=== PATIENT | male | born 1965 | race Caucasian/White ===

== ENCOUNTER 2018-02-18 14:51 | Emergency (ER) | payer OTHER ==
[2018-02-18 15:08] VITALS: BP 121/75
[2018-02-18] MEDS: Ketorolac 60 MG/2 ML SDV IM ONE (15:43)
--- NOTE | 2018-02-18 16:12 | EDM.PDOC ---
ED HPI GENERAL MEDICAL PROBLEM - General Chief Complaint: Back Pain or Injury Stated Complaint: BACK PAIN Time Seen by Provider: 02/18/18 14:55 Source of Information: Reports: Patient History Limitations: Reports: No Limitations - History of Present Illness INITIAL COMMENTS - FREE TEXT/NARRATIVE: Pt. presents to ER with complaints of low back pain. States that he tripped over his own feet and fell backwards, injuring his low back. He states that he did not strike his head, and states that the injury is isolated to his lumbar spine. No saddle anesthesia or incontinence. Onset: Today Location: Reports: Back Quality: Reports: Ache Severity: Moderate Improves with: Reports: Rest Worsens with: Reports: Medication Context: Reports: Activity Lower Back Pain Score (Numeric/FACES): 6 - Related Data Allergies Allergy/AdvReac Type Severity Reaction Status Date / Time lidocaine Allergy Cardiac Verified 09/05/16 07:40 Arrest Home Meds: Home Meds . [No Known Home Meds] 04/28/14 [History] Past Medical History - Past Health History Medical/Surgical History: Denies Medical/Surgical History - Past Surgical History Musculoskeletal Surgical History: Reports: Carpal Tunnel Social & Family History - Tobacco Use Smoking Status *Q: Current Every Day Smoker Years of Tobacco use: 30 Packs/Tins Daily: 0.5 ED ROS GENERAL - Review of Systems Review Of Systems: See Below Constitutional: Reports: No Symptoms HEENT: Reports: No Symptoms Respiratory: Reports: No Symptoms Cardiovascular: Reports: No Symptoms GI/Abdominal: Reports: No Symptoms : Reports: No Symptoms Musculoskeletal: Reports: Back Pain Skin: Reports: No Symptoms Neurological: Reports: No Symptoms Psychiatric: Reports: No Symptoms Hematologic/Lymphatic: Reports: No Symptoms Immunologic: Reports: No Symptoms ED EXAM, GENERAL - Physical Exam Exam: See Below Exam Limited By: No Limitations General Appearance: Alert, WD/WN, No Apparent Distress Head: Atraumatic, Normocephalic Neck: Normal Inspection, Supple, Non-Tender, Full Range of Motion Respiratory/Chest: No Respiratory Distress, Lungs Clear, Normal Breath Sounds, No Accessory Muscle Use, Chest Non-Tender Cardiovascular: Normal Peripheral Pulses, Regular Rate, Rhythm, No Edema, No Gallop, No JVD, No Murmur, No Rub Back Exam: Normal Inspection, Decreased Range of Motion, Paraspinal Tenderness Extremities: Normal Inspection, Normal Range of Motion, Non-Tender, Normal Capillary Refill, No Pedal Edema Neurological: Alert, Oriented, CN II-XII Intact, Normal Cognition, Normal Gait, Normal Reflexes, No Motor/Sensory Deficits Skin Exam: Warm, Dry, Intact, Normal Color, No Rash Course - Vital Signs Last Recorded V/S: Last Vital Signs Temp 36.8 C 02/18/18 14:55 Pulse 58 L 02/18/18 14:55 Resp 18 02/18/18 14:55 BP 121/75 02/18/18 14:55 Pulse Ox 98 02/18/18 14:55 - Orders/Labs/Meds Orders: Active Orders 24 hr Category Date Time Status Lumbar Spine 2 or 3V [CR] Stat Exams 02/18/18 15:15 Taken Meds: Medications Discontinued Medications Generic Name Dose Route Start Last Admin Trade Name Bia PRN Reason Stop Dose Admin Ketorolac Tromethamine 60 mg 02/18/18 15:16 02/18/18 15:43 Toradol IM 02/18/18 15:17 60 mg ONETIME ONE Administration - Radiology Interpretation Free Text/Narrative:: plain films of lumbar spine are negative. Departure - Departure Time of Disposition: 16:00 Disposition: Home, Self-Care 01 Clinical Impression: Low back pain - Discharge Information Instructions: Back Pain, Adult Referrals: Krysten Clay PA-C [Primary Care Provider] - Forms: ED Department Discharge Additional Instructions: Home to rest. Ice low back for 10-15 min every 1-2 hours. Ibuprofen 600mg every 6 hours. Flexeril 10mg 3 times daily. - My Orders Last 24 Hours: My Active Orders 02/18/18 15:15 Lumbar Spine 2 or 3V [CR] Stat - Assessment/Plan Last 24 Hours: My Active Orders 02/18/18 15:15 Lumbar Spine 2 or 3V [CR] Stat
== END 2018-02-18 16:03 | disposition home or self-care (01) ==
LOC: VM.ED 14:51
DX: M54.5 Low back pain (principal); F17.210 Nicotine dependence, cigarettes, uncomplicated; Z88.8 Allergy status to other drugs, medicaments and biological substances
CPT/HCPCS: 72100; 96372; 99283; J1885

== ENCOUNTER 2019-05-10 08:16 | Emergency (ER) | payer BC, OTHER ==
--- NOTE | 2019-05-10 08:34 | EDM.PDOC ---
ED HPI GENERAL MEDICAL PROBLEM - General Stated Complaint: pain right side Time Seen by Provider: 05/10/19 08:33 Source of Information: Reports: Patient History Limitations: Reports: No Limitations - History of Present Illness INITIAL COMMENTS - FREE TEXT/NARRATIVE: Patient's having pain about 30 minutes ago. He states that it has been going on and off past couple days. He has not had stones before. His regular doctor is Dr. Lomeli. This pain on and is on the left side. It is about a 10/10 and it is radiating around his left flank to the groin. Patient is diaphoretic. Patient also is diabetic. He does have a history of gastroenteritis. No colonoscopy. I will do a CAT scan with and without contrast to look for stones or diverticulitis. He did receive Zofran and Dilaudid. He did have relief. I did message his primary in regards to the renal cyst. 2 small calculi were noted distally. He was given a liter of fluid. Flomax. Pain management. Will strain for stones. Onset: Today Duration: Getting Worse Location: Reports: Abdomen, Radiates to (Left groin.) Quality: Reports: Ache, Sharp, Stabbing, Throbbing Severity: Severe Improves with: Reports: None Worsens with: Reports: None Associated Symptoms: Reports: No Other Symptoms Left Flank Pain Score (Numeric/FACES): 10 - Related Data Allergies Allergy/AdvReac Type Severity Reaction Status Date / Time lidocaine Allergy Severe Cardiac Verified 05/10/19 08:39 Arrest Home Meds: Home Meds Hydrocodone/Acetaminophen [Hydrocodon-Acetaminophen 5-325] 1 - 2 each PO Q4H PRN #20 tablet 05/10/19 [Rx] Lisinopril 5 mg PO DAILY 05/10/19 [History] Tamsulosin [Tamsulosin 24 Hr] 0.4 mg PO DAILY #10 cap.er 05/10/19 [Rx] atorvaSTATin Calcium [Atorvastatin Calcium] 10 mg PO DAILY 05/10/19 [History] metFORMIN HCl [Metformin HCl] 500 mg PO DAILY 05/10/19 [History] Past Medical History - Past Health History Medical/Surgical History: Denies Medical/Surgical History - Past Surgical History Musculoskeletal Surgical History: Reports: Carpal Tunnel Social & Family History - Tobacco Use Smoking Status *Q: Current Every Day Smoker ED ROS GENERAL - Review of Systems Review Of Systems: ROS reveals no pertinent complaints other than HPI. ED EXAM, GI/ABD - Physical Exam Exam: See Below Exam Limited By: No Limitations General Appearance: Moderate Distress, Severe Distress Respiratory/Chest: No Respiratory Distress Cardiovascular: Normal Peripheral Pulses, Regular Rate, Rhythm GI/Abdominal Exam: Other (CVA tenderness is positive on the left. Radiates to the left groin. Abdominal pain. Left-sided. Left lower quadrant.) Back Exam: CVA Tenderness (L) Neurological: Alert, Oriented Psychiatric: Anxious Skin Exam: Diaphoretic Course - Vital Signs Last Recorded V/S: Last Vital Signs Temp 35.4 C 05/10/19 08:20 Pulse 73 05/10/19 08:20 Resp 16 05/10/19 08:20 BP 114/81 05/10/19 08:20 Pulse Ox 95 05/10/19 08:20 - Orders/Labs/Meds Labs: Laboratory Tests 05/10/19 05/10/19 05/10/19 Range/Units 08:35 08:35 09:30 WBC 6.6 (4.0-10.0) x10^3/uL RBC 5.34 (4.5-6.0) x10^6/uL Hgb 15.4 D (14.0-18.0) g/dL Hct 45.9 (40.0-52.0) % MCV 86.0 (78.0-93.0) fL MCH 28.8 (26.0-32.0) pg MCHC 33.6 (32.0-36.0) g/dL RDW Coeff of Jorge 13.4 (10.0-15.0) % Plt Count 211 (130-400) x10^3/uL Neut % (Auto) 60.2 (50.0-80.0) % Lymph % (Auto) 30.1 (25.0-50.0) % [place] % (Auto) 7.6 (2.0-11.0) % Eos % (Auto) 1.8 (0.0-4.0) % Baso % (Auto) 0.3 (0.2-1.2) % Sodium 142 (69-191) mmol/L Potassium 4.3 (1.5-9.9) mmol/L Chloride 105 (54-184) mmol/L Carbon Dioxide 25 (21-32) mmol/L Anion Gap 16.3 (10-20) mmol/L BUN 22 H (7-18) mg/dL Creatinine 0.8 (0.70-1.30) mg/dL Est Cr Clr Drug Dosing TNP Estimated GFR (MDRD) > 60 Glucose 143 H (74-106) mg/dL Calcium 9.3 (8.5-10.1) mg/dL Corrected Calcium 9.38 (8.5-10.1) mg/dL Total Bilirubin 1.0 (0.2-1.0) mg/dL AST 26 (15-37) U/L ALT 25 (16-63) U/L Alkaline Phosphatase 69 (46-116) U/L C-Reactive Protein 0.4 (<=0.9) mg/dL Total Protein 8.0 (6.4-8.2) g/dL Albumin 3.9 (3.4-5.0) g/dL Globulin 4.1 Albumin/Globulin Ratio 0.95 Urine Color Yellow (YELLOW) Urine Appearance Clear (CLEAR) Urine pH 5.0 (5.0-8.0) Ur Specific [place] 1.015 Urine Protein Negative (NEGATIVE) mg/dL Urine Glucose (UA) Negative (NEGATIVE) mg/dL Urine Ketones Negative (NEGATIVE) mg/dL Urine Occult Blood Moderate H (NEGATIVE) Urine Nitrite Negative (NEGATIVE) Urine Bilirubin Negative (NEGATIVE) Urine Urobilinogen 0.2 (0.2) EU/dL Ur Leukocyte Esterase Negative (NEGATIVE) Meds: Medications Discontinued Medications Generic Name Dose Route Start Last Admin Trade Name Freq PRN Reason Stop Dose Admin Hydromorphone HCl 1 mg 05/10/19 08:39 05/10/19 08:47 Dilaudid IVPUSH 05/10/19 08:40 1 mg ONETIME ONE Administration Sodium Chloride 1,000 mls @ 999 mls/hr 05/10/19 09:46 05/10/19 10:19 Normal Saline IV 05/10/19 10:46 999 mls/hr .BOLUS ONE Administration Iopamidol 100 ml 05/10/19 09:29 05/10/19 09:30 Isovue-300 (61%) IVPUSH 05/10/19 09:30 100 ml ONETIME ONE Administration Ondansetron HCl 4 mg 05/10/19 08:39 05/10/19 08:49 Zofran IVPUSH 05/10/19 08:40 4 mg ONETIME ONE Administration Departure - Departure Time of Disposition: 10:09 Disposition: Home, Self-Care 01 Condition: Fair Clinical Impression: Ureteric colic - Discharge Information *PRESCRIPTION DRUG MONITORING PROGRAM REVIEWED*: No *COPY OF PRESCRIPTION DRUG MONITORING REPORT IN PATIENT SISSY: No Prescriptions: Hydrocodone/Acetaminophen [Hydrocodon-Acetaminophen 5-325] 1 - 2 each PO Q4H PRN #20 tablet PRN Reason: Pain Tamsulosin [Tamsulosin 24 Hr] 0.4 mg PO DAILY #10 cap.er Instructions: Renal Colic, [id number], Kidney Stones, [id number] Referrals: Reddy Bird PA-C [Primary Care Provider] - Forms: ED Department Discharge, ED Return to Work/School Form Additional Instructions: CT scan shows a stone in the bladder and one nearly passing. Continue to drink plenty of water. Strain your urine and recover the stone if possible for a stone analysis. Flomax may help. Use pain medications if needed. It does appear you have a large cyst on your left kidney that does not appear to be affecting your kidney function per se. I will message your doctor and see if he would like to see you regarding this or if he prefer you to see a urologist. I don't believe they will have any further recommendations. Observation will only be needed.
[2019-05-10] MEDS ORDERED: Ondansetron 4 MG/2 ML SDV IVPUSH ONE (08:39)
[2019-05-10] MEDS ORDERED: HYDROmorphone 1 MG/ML Syringe IVPUSH ONE (08:39)
[2019-05-10 09:04] VITALS: BP 114/81; PULSE 73
[2019-05-10 09:04] LABS: CHLORIDE,CL 105 mmol/L (54-184); SODIUM,NA 142 mmol/L (69-191)
[2019-05-10 09:06] LABS: ANION GAP 16.3 mmol/L (10-20)
[2019-05-10] MEDS ORDERED: Iopamidol 612 MG/ML 100 ML Bottle IVPUSH ONE (09:29)
[2019-05-10] MEDS ORDERED: Sodium Chloride 0.9% 1,000 ML IV ONE (09:46)
--- NOTE | 2019-05-10 10:03 | CT ---
[id number] CT/CT Abdomen Pelvis WWO IV EXAM: CT Abdomen Pelvis WWO IV INDICATION: Pain with concern for diverticulitis or left-sided renal stone. COMPARISON: None. FINDINGS: The distal left ureter there is a 2 mm calculus at the ureterovesicular junction and a 3 x 2 mm calculus in a couple of centimeters proximal to this. This results in [id number] left hydronephrosis. 11.3 cm cyst arising from the lower pole of the left kidney. 10 mm hypodense exophytic lesion interpolar region left kidney without appreciable enhancement likely a complicated cyst. No right-sided calculus or collecting system dilation. Cholelithiasis without CT evidence of acute cholecystitis. Fatty atrophy of the abdominal wall musculature. There are few scattered colonic diverticula without evidence of diverticulitis. The liver, pancreas, spleen, adrenal glands, and small bowel are normal in appearance. No free air or free fluid. Degenerative disc disease L4-L5 and L5-S1. The osseous structures are otherwise unremarkable. IMPRESSION: 1. In the distal left ureter there are 2 and 3 mm calculi resulting in [id number] left hydroureteronephrosis. Matheus Ortega MD 05/10/19 1001 Thank you for allowing us to participate in the care of your patient.
== END 2019-05-10 11:00 | disposition home or self-care (01) ==
LOC: VM.ED 08:16
DX: N23 Unspecified renal colic (principal); E11.9 Type 2 diabetes mellitus without complications; F17.200 Nicotine dependence, unspecified, uncomplicated; Z88.8 Allergy status to other drugs, medicaments and biological substances; Z79.899 Other long term (current) drug therapy; Z79.84 Long term (current) use of oral hypoglycemic drugs
CPT/HCPCS: 74178; 80053; 81003; 85025; 86140; 96361; 96374; 96375; 99284; J1170; J2405; J7030; Q9967

== ENCOUNTER 2020-11-27 11:23 | Emergency (ER) | payer BC ==
[2020-11-27] MEDS ORDERED: Sodium Chloride 0.9% 10 ML Syringe FLUSH PRN (11:32)
--- NOTE | 2020-11-27 11:52 | EDM.PDOC ---
ED HPI GENERAL MEDICAL PROBLEM - General Stated Complaint: SOB Time Seen by Provider: 11/27/20 11:23 Source of Information: Reports: Patient History Limitations: Reports: No Limitations - History of Present Illness INITIAL COMMENTS - FREE TEXT/NARRATIVE: Pt. presents to ER via private vehicle with complaints of 12 day history of respirophasic chest pain, shortness of breath, GUTIERREZ, and cough, occasionally productive of yellowish sputum. Pt. states that the symptoms started after his last covid vaccination. He said the symptoms did improve somewhat, but got worse again this past Friday. He has been using mucinex, with minimal improvement of symptoms. He has been afebrile. Last time he was tested for covid 19 was June. Pt. denies any diaphoresis. No nausea, vomiting, or diarrhea. Denies any rashes. Pt. denies any jaw, arm, neck or back pain. Pt. states that he stopped smoking in Sep. He has a history of hypertension, IFG, and hyperlipidemia. He denies any recent chest trauma. - Related Data Allergies Allergy/AdvReac Type Severity Reaction Status Date / Time lidocaine Allergy Severe Cardiac Verified 05/10/19 08:39 Arrest strawberry Allergy Cannot Verified 11/27/20 11:57 Remember Home Meds: Home Meds atorvaSTATin Calcium [Atorvastatin Calcium] 10 mg PO DAILY 05/10/19 [History] lisinopriL [Lisinopril] 5 mg PO DAILY 05/10/19 [History] metFORMIN HCl [Metformin HCl] 500 mg PO DAILY 05/10/19 [History] Aspirin 81 mg PO DAILY 11/27/20 [History] Multivitamin 1 tab PO DAILY 11/27/20 [History] Past Medical History - Past Health History Medical/Surgical History: Denies Medical/Surgical History Cardiovascular History: Reports: High Cholesterol, Hypertension Endocrine/Metabolic History: Reports: Diabetes, Type II - Past Surgical History Musculoskeletal Surgical History: Reports: Carpal Tunnel ED ROS GENERAL - Review of Systems Review Of Systems: See Below Constitutional: Reports: No Symptoms. Denies: Fever, Chills, Malaise, Weakness, Fatigue, Night Sweats, Diaphoresis HEENT: Reports: No Symptoms Respiratory: Reports: Shortness of Breath, Cough Cardiovascular: Reports: Chest Pain, Dyspnea on Exertion. Denies: Edema, Lightheadedness, Palpitations, PND, Syncope Endocrine: Reports: No Symptoms GI/Abdominal: Reports: No Symptoms : Reports: No Symptoms Musculoskeletal: Reports: No Symptoms Skin: Reports: No Symptoms Neurological: Reports: No Symptoms Psychiatric: Reports: No Symptoms Hematologic/Lymphatic: Reports: No Symptoms Immunologic: Reports: No Symptoms ED EXAM, GENERAL - Physical Exam Exam: See Below Exam Limited By: No Limitations General Appearance: Alert, WD/WN, No Apparent Distress Eye Exam: Bilateral Eye: EOMI Throat/Mouth: Normal Lips, Normal Voice, No Airway Compromise Head: Atraumatic, Normocephalic Neck: Normal Inspection, Supple, Non-Tender, Full Range of Motion Respiratory/Chest: No Respiratory Distress, No Accessory Muscle Use, Decreased Breath Sounds Cardiovascular: Regular Rate, Rhythm, No Edema Peripheral Pulses: 4+: Radial (L) GI/Abdominal: Soft, Non-Tender, No Distention, No Mass (Male) Exam: Deferred Rectal (Males) Exam: Deferred Back Exam: Normal Inspection, Full Range of Motion Extremities: Normal Inspection, Normal Range of Motion, Non-Tender, No Pedal Edema, Normal Capillary Refill Neurological: Alert, Oriented, CN II-XII Intact, Normal Cognition, Normal Gait, Normal Reflexes, No Motor/Sensory Deficits Psychiatric: Normal Affect, Normal Mood Skin Exam: Warm, Dry, Intact, Normal Color, No Rash #1 Interpretation Rhythm: NSR Eros: Normal P-Wave: Present QRS: Normal ST-T: Normal QT: Normal EKG Interpretation Comments: Sinus rhythm, LVH, early repolarization. Course - Vital Signs Last Recorded V/S: Last Vital Signs Temp 36.2 C 11/27/20 11:25 Pulse 54 L 11/27/20 11:25 Resp 18 11/27/20 11:25 BP 127/83 11/27/20 12:30 Pulse Ox 97 11/27/20 11:25 - Orders/Labs/Meds Orders: Active Orders 24 hr Category Date Time Status EKG Documentation Completion [RC] STAT Care 11/27/20 11:33 Active Chest w Cont [CT] Stat Exams 11/27/20 11:32 Stop Req Sodium Chloride 0.9% [Saline Flush] Med 11/27/20 11:32 Active 10 ml FLUSH ASDIRECTED PRN Peripheral IV Insertion Adult [OM.PC] Routine Oth 11/27/20 11:32 Ordered Medication Orders Sodium Chloride (Sodium Chloride 0.9% 10 Ml Syringe) 10 ml FLUSH ASDIRECTED PRN PRN Reason: Keep Vein Open Labs: Laboratory Tests 11/27/20 11/27/20 11/27/20 Range/Units 11:38 11:43 11:43 WBC (4.0-10.0) x10^3/uL RBC (4.5-6.0) x10^6/uL Hgb (14.0-18.0) g/dL Hct (40.0-52.0) % MCV (78.0-93.0) fL MCH (26.0-32.0) pg MCHC (32.0-36.0) g/dL RDW Coeff of Jorge (10.0-15.0) % Plt Count (130-400) x10^3/uL Neut % (Auto) (50.0-80.0) % Lymph % (Auto) (25.0-50.0) % [place] % (Auto) (2.0-11.0) % Eos % (Auto) (0.0-4.0) % Baso % (Auto) (0.2-1.2) % APTT 26.3 (25.6-32.8) SEC D-Dimer, Quantitative (<=0.58) mg/LFEU Sodium 141 (136-145) mmol/L Potassium 4.1 (3.5-5.1) mmol/L Chloride 104 (98-107) mmol/L Carbon Dioxide 29 (21-32) mmol/L Anion Gap 12.1 (5-15) mmol/L BUN 15 (7-18) mg/dL Creatinine 0.7 (0.70-1.30) mg/dL Est Cr Clr Drug Dosing 105.07 mL/min Estimated GFR (MDRD) > 60 Glucose 109 H (70-99) mg/dL Calcium 9.0 (8.5-10.1) mg/dL Corrected Calcium 9.32 (8.5-10.1) mg/dL Magnesium 2.0 (1.8-2.4) mg/dL Total Bilirubin 0.5 (0.2-1.0) mg/dL AST 24 (15-37) U/L ALT 30 (16-63) U/L Alkaline Phosphatase 56 (46-116) U/L Troponin I High Sens 32 (<=76) ng/L C-Reactive Protein 0.2 (<=0.9) mg/dL NT-Pro-B Natriuret Pep 259 H (<=125) pg/mL Total Protein 7.4 (6.4-8.2) g/dL Albumin 3.6 (3.4-5.0) g/dL Globulin 3.8 Albumin/Globulin Ratio 0.95 Influenza Type A RNA Negative (NEGATIVE) Influenza Type B RNA Negative (NEGATIVE) SARS-CoV-2 RNA (MARIELLA) Negative (NEGATIVE) 11/27/20 11/27/20 Range/Units 11:43 11:43 WBC 8.1 (4.0-10.0) x10^3/uL RBC 4.65 (4.5-6.0) x10^6/uL Hgb 13.6 L D (14.0-18.0) g/dL Hct 40.6 (40.0-52.0) % MCV 87.3 (78.0-93.0) fL MCH 29.2 (26.0-32.0) pg MCHC 33.5 (32.0-36.0) g/dL RDW Coeff of Jorge 13.3 (10.0-15.0) % Plt Count 217 (130-400) x10^3/uL Neut % (Auto) 66.6 (50.0-80.0) % Lymph % (Auto) 24.2 L (25.0-50.0) % [place] % (Auto) 6.9 (2.0-11.0) % Eos % (Auto) 2.1 (0.0-4.0) % Baso % (Auto) 0.2 (0.2-1.2) % APTT (25.6-32.8) SEC D-Dimer, Quantitative 0.21 (<=0.58) mg/LFEU Sodium (136-145) mmol/L Potassium (3.5-5.1) mmol/L Chloride (98-107) mmol/L Carbon Dioxide (21-32) mmol/L Anion Gap (5-15) mmol/L BUN (7-18) mg/dL Creatinine (0.70-1.30) mg/dL Est Cr Clr Drug Dosing mL/min Estimated GFR (MDRD) Glucose (70-99) mg/dL Calcium (8.5-10.1) mg/dL Corrected Calcium (8.5-10.1) mg/dL Magnesium (1.8-2.4) mg/dL Total Bilirubin (0.2-1.0) mg/dL AST (15-37) U/L ALT (16-63) U/L Alkaline Phosphatase (46-116) U/L Troponin I High Sens (<=76) ng/L C-Reactive Protein (<=0.9) mg/dL NT-Pro-B Natriuret Pep (<=125) pg/mL Total Protein (6.4-8.2) g/dL Albumin (3.4-5.0) g/dL Globulin Albumin/Globulin Ratio Influenza Type A RNA (NEGATIVE) Influenza Type B RNA (NEGATIVE) SARS-CoV-2 RNA (MARIELLA) (NEGATIVE) Meds: Medications Generic Name Dose Route Start Last Admin Trade Name Freq PRN Reason Stop Dose Admin Sodium Chloride 10 ml 11/27/20 11:32 Sodium Chloride 0.9% 10 Ml Syringe FLUSH ASDIRECTED PRN Keep Vein Open Discontinued Medications Generic Name Dose Route Start Last Admin Trade Name Freq PRN Reason Stop Dose Admin Methylprednisolone Sodium Succinate 125 mg 11/27/20 13:05 11/27/20 13:10 Methylprednisolone Sodium Succinate 125 Mg/2 Ml Sdv IV 11/27/20 13:06 125 mg ONETIME ONE Administration - Radiology Interpretation Free Text/Narrative:: mild cardiomegaly. No failure pattern. No acute infiltrate. Departure - Departure Time of Disposition: 13:15 Disposition: Home, Self-Care 01 Clinical Impression: Bronchitis - Discharge Information Instructions: Acute Bronchitis, Adult, [id number], Doxycycline tablets or capsules, Prednisone tablets Referrals: Reddy Bird PA-C [Primary Care Provider] - Forms: ED Department Discharge Additional Instructions: Likely cause of your symptoms today are bronchitis. For this, we will start the following medications: Prednisone 20mg 2 tabs daily for 7 days Doxycycline 100mg 1 tab twice daily for 10 days Albuterol inhaler 2 puffs every 4-6 hours as needed for trouble breathing There was no evidence of heart attack, blood clots in your lungs, or other life- threatening causes for your shortness of breath. Your heart size on your chest x-ray is borderline enlarged. This is evident on your EKG as well. I would like you to increase your lisinopril to 2 pills (10mg) once daily and follow-up with in the clinic. Return to ER if you have worsening discomfort or trouble breathing. Off work today thru if needed. Sepsis Event Note (ED) - Focused Exam Vital Signs: Vital Signs Temp Pulse Resp BP Pulse Ox 11/27/20 12:30 127/83 11/27/20 11:25 36.2 C 54 L 18 161/93 H 97 - Problem List Review Problem List Initiated/Reviewed/Updated: Yes - My Orders Last 24 Hours: My Active Orders 11/27/20 11:32 Chest w Cont [CT] Stat Sodium Chloride 0.9% [Saline Flush] 10 ml FLUSH ASDIRECTED PRN Peripheral IV Insertion Adult [OM.PC] Routine 11/27/20 11:33 EKG Documentation Completion [RC] STAT - Assessment/Plan Last 24 Hours: My Active Orders 11/27/20 11:32 Chest w Cont [CT] Stat Sodium Chloride 0.9% [Saline Flush] 10 ml FLUSH ASDIRECTED PRN Peripheral IV Insertion Adult [OM.PC] Routine 11/27/20 11:33 EKG Documentation Completion [RC] STAT Plan: Symptoms most consistent with bronchitis. He is a recent ex-smoker, so we will treat him with prednisone and doxycycline. Pt. is noted to have LVH on EKG. This is a new finding, not present in 2015. His heart is also generous on the chest x-ray. ProBNP is also mildly elevated. Advised him to increase his lisinopril for now to 10mg once daily and follow-up in clinic for recheck, and possible echocardiogram. Return to ER if he has any increased chest pain or shortness of breath.
[2020-11-27 12:08] VITALS: PULSE 54
[2020-11-27 12:17] LABS: ANION GAP 12.1 mmol/L (5-15); CHLORIDE,CL 104 mmol/L (98-107); SODIUM,NA 141 mmol/L (136-145)
[2020-11-27 12:22] LABS: CORONAVIRUS COVID-19 NAA NEGATIVE (NEGATIVE)
--- NOTE | 2020-11-27 12:58 | CR ---
[id number] RAD/RAD Chest PA or AP 1V EXAM: RAD Chest PA or AP 1V INDICATION: SHORTNESS OF BREATH. COMPARISON: None. Discussion/impression: Borderline/mild cardiomegaly. Lungs are clear. No pleural effusion or pneumothorax. Joesph Green MD 11/27/20 [id number] Thank you for allowing us to participate in the care of your patient.
[2020-11-27] MEDS ORDERED: methylPREDNISolone Sodium Succinate 125 MG/2 ML SDV IV ONE (13:05)
[2020-11-27 14:40] VITALS: BP 127/83
== END 2020-11-27 13:25 | disposition home or self-care (01) ==
LOC: VM.ED 11:23
CPT/HCPCS: 0240U; 71045; 80053; 83735; 83880; 84484; 85025; 85379; 85730; 86140; 93005; 93010; 96374; 99284; 99285; J2930

== ENCOUNTER 2021-01-16 08:09 | Emergency (ER) | payer OTHER, BC ==
[2021-01-16 08:23] VITALS: BP 149/88; PULSE 59
--- NOTE | 2021-01-16 08:33 | EDM.PDOC ---
ED HPI GENERAL MEDICAL PROBLEM - General Chief Complaint: Head Injury Stated Complaint: fall head injury Time Seen by Provider: 01/16/21 08:20 Source of Information: Reports: Patient History Limitations: Reports: No Limitations - History of Present Illness INITIAL COMMENTS - FREE TEXT/NARRATIVE: Patient comes emergency department today from work with complaints of a posterior head injury. This patient was at work when he slipped on some cardboard fell backwards struck the back of his head on the ground. He did not get knocked out. He noticed that he had quite a bit of bleeding from the posterior aspect of his head he was worried that he had a large laceration so he came to the ER. He has no headache blurry vision weakness dizziness lightheadedness. No diplopia. No paresthesias of his upper or lower extremities. No change in the functionality of his upper or lower extremities. He has no weakness dizziness lightheadedness. His fall was mechanical fall and he was asymptomatic prior to it. He has no head neck or back pain other than to the area of the posterior occiput where his head hit the ground. He has no headache. No nausea no vomiting. No weakness dizziness lightheadedness. He is unsure when his last tetanus shot was. He is not on any blood thinners. - Related Data Allergies Allergy/AdvReac Type Severity Reaction Status Date / Time lidocaine Allergy Severe Cardiac Verified 01/16/21 08:17 Arrest strawberry Allergy Cannot Verified 01/16/21 08:17 Remember Home Meds: Home Meds atorvaSTATin Calcium [Atorvastatin Calcium] 10 mg PO DAILY 05/10/19 [History] lisinopriL [Lisinopril] 5 mg PO DAILY 05/10/19 [History] metFORMIN HCl [Metformin HCl] 500 mg PO DAILY 05/10/19 [History] Aspirin 81 mg PO DAILY 11/27/20 [History] Multivitamin 1 tab PO DAILY 11/27/20 [History] Past Medical History - Past Health History Medical/Surgical History: Denies Medical/Surgical History Cardiovascular History: Reports: High Cholesterol, Hypertension Endocrine/Metabolic History: Reports: Diabetes, Type II - Infectious Disease History Infectious Disease History: Reports: None - Past Surgical History Respiratory Surgical History: Reports: Other (See Below) Other Respiratory Surgeries/Procedures: Bronchial cyst removal Musculoskeletal Surgical History: Reports: Carpal Tunnel Other Musculoskeletal Surgeries/Procedures:: Trigger finger Social & Family History - Tobacco Use Tobacco Use Status *Q: Never Tobacco User ED ROS GENERAL - Review of Systems Review Of Systems: Comprehensive ROS is negative, except as noted in HPI. ED EXAM, HEAD INJURY - Physical Exam Exam: See Below Exam Limited By: No Limitations General Appearance: Alert, WD/WN, No Apparent Distress Head: Normocephalic, Scalp Abrasions (On the very posterior occiput region there is an abrasion about 1 cm x 2 cm. There is minimal amount of swelling. There is no active bleeding. No subcutaneous emphysema. No hematoma. No bony deformity or crepitus). No: Scalp Lacerations, Scalp Ecchymosis, Scalp Hematoma, Scalp Tenderness, Active Bleeding, White's Sign, Flap, Facial Abrasions, Facial Ecchymosis, Facial Lacerations, Facial Swelling, Sinus Tendern ess, Facial Tenderness, Raccoon Eyes Nexus Criteria: Posterior, Midline Cervical Tenderness, Evidence of Intoxication, Altered Level of Consciousness, Focal Neurological Deficit, Painful Distraction Injuries Eyes: Bilateral Eye: EOMI, PERRL Ears: Normal External Exam, Normal Canal, Normal TMs Nose: Normal Inspection, Normal Mucousa Throat/Mouth: Normal Inspection, Normal Lips, Normal Teeth, Normal Oropharynx, Normal Voice, No Airway Compromise, Uvular Edema Neck: Non-Tender, Full Range of Motion, Normal Alignment Respiratory: No Respiratory Distress, No Accessory Muscle Use Cardiovascular: Normal Peripheral Pulses, Regular Rate, Rhythm Back Exam: Normal Inspection, Full Range of Motion. 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, No Motor/Sensory Deficits, Alert, Normal Mood/Affect, Oriented x 3 Skin: Normal Color, Warm/Dry - Jess Coma Score Best Eye Response (Elmo): (4) Open Spontaneously Best Verbal Response (Jess): (5) Oriented Best Motor Response (Jess): (6) Obeys Commands Course - Vital Signs Last Recorded V/S: Last Vital Signs Temp 97.6 F 01/16/21 08:10 Pulse 59 L 01/16/21 08:10 Resp 16 01/16/21 08:10 BP 149/88 H 01/16/21 08:10 Pulse Ox 95 01/16/21 08:10 - Orders/Labs/Meds Meds: Medications Discontinued Medications Generic Name Dose Route Start Last Admin Trade Name Bia PRN Reason Stop Dose Admin Diphtheria/Tetanus/Acell Pertussis 0.5 ml 01/16/21 08:35 01/16/21 08:40 Diphtheria,Pertussis(Acell),Tetanus Vaccine 0.5 Ml Syringe IM 01/16/21 08:36 0.5 ml .ONCE ONE Administration - Re-Assessments/Exams Free Text/Narrative Re-Assessment/Exam: 01/16/21 The abrasion to the posterior aspect of his scalp does not need any repair. His tetanus immunization was updated. He is alert appropriate there was no loss of consciousness. I do not feel that he needs a CT scan with his clinical presentation. Symptomatic management for the abrasion recheck if anything new or worse. Discharge instructions as below are explained to the patient he was comfortable with this plan and his questions were answered. Departure - Departure Time of Disposition: 08:31 Disposition: Home, Self-Care 01 Clinical Impression: Scalp contusion Qualifiers: Encounter type: initial encounter Qualified Code(s): S00.03XA - Contusion of scalp, initial encounter Closed head injury Qualifiers: Encounter type: initial encounter Qualified Code(s): S09.90XA - Unspecified injury of head, initial encounter - Discharge Information Instructions: Facial or Scalp Contusion, [id number], Head Injury, Adult, [id number] Referrals: Reddy Bird PA-C [Primary Care Provider] - Forms: ED Department Discharge Additional Instructions: Cleanse abrasion twice daily with soap and water. Bacitracin until healed. Ice to the sore areas. Tylenol as needed for pain. Recheck in the ED if new or worsening symptoms. Especially neuro changes or recurrent vomiting. Follow up in the clinic as needed. Sepsis Event Note (ED) - Evaluation Sepsis Screening Result: No Definite Risk - Focused Exam Vital Signs: Vital Signs Temp Pulse Resp BP Pulse Ox 01/16/21 08:10 97.6 F 59 L 16 149/88 H 95
[2021-01-16] MEDS ORDERED: Diphtheria,Pertussis(Acell),Tetanus Vaccine 0.5 ML Syringe IM ONE (08:35)
== END 2021-01-16 08:50 | disposition home or self-care (01) ==
LOC: VM.ED 08:09
DX: S00.03XA Contusion of scalp, initial encounter (principal); E78.00 Pure hypercholesterolemia, unspecified; I10 Essential (primary) hypertension; Z79.82 Long term (current) use of aspirin; Z79.84 Long term (current) use of oral hypoglycemic drugs; Z88.4 Allergy status to anesthetic agent; Z91.048 Other nonmedicinal substance allergy status; Z23 Encounter for immunization; W01.198A Fall on same level from slipping, tripping and stumbling with subsequent striking against other object, initial encounter; Y99.0 Civilian activity done for income or pay
CPT/HCPCS: 90471; 90715; 99283

== ENCOUNTER 2021-05-04 16:51 | Emergency (ER) | payer BC, OTHER ==
[2021-05-04 17:24] VITALS: BP 126/85; PULSE 97
--- NOTE | 2021-05-04 17:41 | EDM.PDOC ---
ED HPI GENERAL MEDICAL PROBLEM - General Chief Complaint: Respiratory Problem Stated Complaint: Short of Breath Time Seen by Provider: 05/04/21 17:20 Source of Information: Reports: Patient History Limitations: Reports: No Limitations - History of Present Illness INITIAL COMMENTS - FREE TEXT/NARRATIVE: Matheus is a 55 year old male who presents to ER from clinic with complaints of shortness of breath and low pulse. Was seen this afternoon in clinic for same. Did an EKG which showed sinus bradycardia and referred over to ER. has felt short of breath on and off since November. Was seen here in the ER at that time, told he had bronchitis and was put on an inhaler. Still uses that from time to time due to SOB and wheezing. Quit smoking in September, has had more problems with his breathing since he quit than when he was smoking. No fevers. No sputum production. Minimal cough. No lightheadedness or dizziness. No nausea or vomiting. No diarrhea. Has been eating and drinking well. Has had the covid vaccine. Onset: Gradual Duration: Day(s):, Constant Location: Reports: Chest Severity: Mild Improves with: Reports: Rest Worsens with: Reports: Movement Associated Symptoms: Reports: Malaise, Shortness of Breath. Denies: Confusion, Chest Pain, Fever/Chills, Loss of Appetite, Nausea/Vomiting - Related Data Allergies Allergy/AdvReac Type Severity Reaction Status Date / Time lidocaine Allergy Severe Cardiac Verified 05/04/21 16:53 Arrest strawberry Allergy Cannot Verified 05/04/21 16:53 Remember Home Meds: Home Meds atorvaSTATin Calcium [Atorvastatin Calcium] 10 mg PO DAILY 05/10/19 [History] lisinopriL [Lisinopril] 5 mg PO DAILY 05/10/19 [History] metFORMIN HCl [Metformin HCl] 500 mg PO DAILY 05/10/19 [History] Aspirin 81 mg PO DAILY 11/27/20 [History] Multivitamin 1 tab PO DAILY 11/27/20 [History] Past Medical History - Past Health History Medical/Surgical History: Denies Medical/Surgical History Cardiovascular History: Reports: High Cholesterol, Hypertension Endocrine/Metabolic History: Reports: Diabetes, Type II - Infectious Disease History Infectious Disease History: Reports: None - Past Surgical History Respiratory Surgical History: Reports: Other (See Below) Other Respiratory Surgeries/Procedures: Bronchial cyst removal Musculoskeletal Surgical History: Reports: Carpal Tunnel Other Musculoskeletal Surgeries/Procedures:: Trigger finger Social & Family History - Tobacco Use Tobacco Use Status *Q: Former Tobacco User ED ROS GENERAL - Review of Systems Review Of Systems: See Below Constitutional: Denies: Fever, Chills, Malaise, Weakness, Fatigue, Decreased Appetite HEENT: Denies: Ear Pain, Sinus Problem, Throat Pain, Vertigo, Vision Change Respiratory: Reports: Shortness of Breath, Cough Cardiovascular: Denies: Chest Pain, Edema, Lightheadedness Endocrine: Denies: Fatigue GI/Abdominal: Denies: Abdominal Pain, Constipation, Diarrhea, Nausea, Vomiting : Reports: No Symptoms Musculoskeletal: Reports: No Symptoms Skin: Reports: No Symptoms Neurological: Reports: No Symptoms ED EXAM, GENERAL - Physical Exam Exam: See Below Exam Limited By: No Limitations General Appearance: Alert, WD/WN, No Apparent Distress Ears: Normal External Exam, Normal TMs Nose: Normal Inspection, Normal Mucosa, No Blood Throat/Mouth: Normal Inspection, Normal Oropharynx Head: Normocephalic Neck: Normal Inspection, Supple, Non-Tender Respiratory/Chest: No Respiratory Distress, Lungs Clear, Decreased Breath Sounds Cardiovascular: Regular Rate, Rhythm, No Edema GI/Abdominal: Normal Bowel Sounds, Soft, Non-Tender Extremities: Normal Inspection, No Pedal Edema Neurological: Alert, Oriented Skin Exam: Warm, Dry Course - Vital Signs Last Recorded V/S: Last Vital Signs Temp 97.6 F 05/04/21 17:14 Pulse 97 05/04/21 17:14 Resp 15 05/04/21 17:14 BP 126/85 05/04/21 17:14 Pulse Ox 97 05/04/21 17:14 - Orders/Labs/Meds Labs: Laboratory Tests 05/04/21 05/04/21 05/04/21 Range/Units 17:38 17:42 17:42 WBC 9.1 (4.0-10.0) x10^3/uL RBC 5.03 (4.5-6.0) x10^6/uL Hgb 14.4 (14.0-18.0) g/dL Hct 43.8 (40.0-52.0) % MCV 87.1 (78.0-93.0) fL MCH 28.6 (26.0-32.0) pg MCHC 32.9 (32.0-36.0) g/dL RDW Coeff of Jorge 12.9 (10.0-15.0) % Plt Count 210 (130-400) x10^3/uL Immature Gran % (Auto) 0.00 (0.00-0.43) % Neut % (Auto) 67.4 (50.0-80.0) % Lymph % (Auto) 22.3 L (25.0-50.0) % [place] % (Auto) 7.6 (2.0-11.0) % Eos % (Auto) 2.1 (0.0-4.0) % Baso % (Auto) 0.6 (0.2-1.2) % Neut # (Auto) 6.1 (1.8-7.7) x10^3/uL Lymph # (Auto) 2.0 (1.0-4.8) x10^3/uL [place] # (Auto) 0.7 (0.0-0.8) x10^3/uL Eos # (Auto) 0.2 (0.0-0.5) x10^3/uL Baso # (Auto) 0.1 (0.0-0.2) x10^3/uL Immature Gran # (Auto) 0.00 (0.00-0.07) x10^3/uL D-Dimer, Quantitative (<=0.58) mg/LFEU Sodium 142 (136-145) mmol/L Potassium 4.0 (3.5-5.1) mmol/L Chloride 105 (98-107) mmol/L Carbon Dioxide 29 (21-32) mmol/L Anion Gap 12.0 (5-15) mmol/L BUN 16 (7-18) mg/dL Creatinine 0.6 L (0.70-1.30) mg/dL Est Cr Clr Drug Dosing 122.58 mL/min Estimated GFR (MDRD) > 60 Glucose 104 H (70-99) mg/dL Calcium 8.7 (8.5-10.1) mg/dL Corrected Calcium 8.9 (8.5-10.1) mg/dL Total Bilirubin 0.7 (0.2-1.0) mg/dL AST 23 (15-37) U/L ALT 28 (16-63) U/L Alkaline Phosphatase 62 (46-116) U/L Lactate Dehydrogenase 168 (85-227) U/L Creatine Kinase 143 (39-308) U/L Troponin I High Sens 56 (<=76) ng/L C-Reactive Protein < 0.2 (<=0.9) mg/dL NT-Pro-B Natriuret Pep 263 H (<=125) pg/mL Total Protein 7.1 (6.4-8.2) g/dL Albumin 3.7 (3.4-5.0) g/dL Globulin 3.4 Albumin/Globulin Ratio 1.09 SARS CoV-2 RNA Rapid MARIELLA Negative (NEGATIVE) 05/04/21 Range/Units 17:42 WBC (4.0-10.0) x10^3/uL RBC (4.5-6.0) x10^6/uL Hgb (14.0-18.0) g/dL Hct (40.0-52.0) % MCV (78.0-93.0) fL MCH (26.0-32.0) pg MCHC (32.0-36.0) g/dL RDW Coeff of Jorge (10.0-15.0) % Plt Count (130-400) x10^3/uL Immature Gran % (Auto) (0.00-0.43) % Neut % (Auto) (50.0-80.0) % Lymph % (Auto) (25.0-50.0) % [place] % (Auto) (2.0-11.0) % Eos % (Auto) (0.0-4.0) % Baso % (Auto) (0.2-1.2) % Neut # (Auto) (1.8-7.7) x10^3/uL Lymph # (Auto) (1.0-4.8) x10^3/uL [place] # (Auto) (0.0-0.8) x10^3/uL Eos # (Auto) (0.0-0.5) x10^3/uL Baso # (Auto) (0.0-0.2) x10^3/uL Immature Gran # (Auto) (0.00-0.07) x10^3/uL D-Dimer, Quantitative < 0.19 (<=0.58) mg/LFEU Sodium (136-145) mmol/L Potassium (3.5-5.1) mmol/L Chloride (98-107) mmol/L Carbon Dioxide (21-32) mmol/L Anion Gap (5-15) mmol/L BUN (7-18) mg/dL Creatinine (0.70-1.30) mg/dL Est Cr Clr Drug Dosing mL/min Estimated GFR (MDRD) Glucose (70-99) mg/dL Calcium (8.5-10.1) mg/dL Corrected Calcium (8.5-10.1) mg/dL Total Bilirubin (0.2-1.0) mg/dL AST (15-37) U/L ALT (16-63) U/L Alkaline Phosphatase (46-116) U/L Lactate Dehydrogenase (85-227) U/L Creatine Kinase (39-308) U/L Troponin I High Sens (<=76) ng/L C-Reactive Protein (<=0.9) mg/dL NT-Pro-B Natriuret Pep (<=125) pg/mL Total Protein (6.4-8.2) g/dL Albumin (3.4-5.0) g/dL Globulin Albumin/Globulin Ratio SARS CoV-2 RNA Rapid MARIELLA (NEGATIVE) - Re-Assessments/Exams Free Text/Narrative Re-Assessment/Exam: 05/04/21 17:42 Review of patient's prior visits to the ER since 2018, has been here x5. Pulse in the 50s with each visit. Unsure of what his typical pulse is. Not on any beta blockers. Relates does have a history of "an enlarged heart but has known that for over 10 years". 05/04/21 18:24 Chest xray is normal. Labs all reviewed. ProBNP is mildly elevated. Discussed findings with patient and his . Would recommend an echocardiogram. Will try Lasix for 5 days and have patient follow up with Reddy. May need a stress test. Departure - Departure Time of Disposition: 18:29 Disposition: Home, Self-Care 01 Clinical Impression: Bradycardia CHF (congestive heart failure), NYHA class I Qualifiers: Congestive heart failure chronicity: acute - Discharge Information *PRESCRIPTION DRUG MONITORING PROGRAM REVIEWED*: No *COPY OF PRESCRIPTION DRUG MONITORING REPORT IN PATIENT SISSY: No Instructions: Heart Failure, Diagnosis, [id number] Referrals: Reddy Bird PA-C [Primary Care Provider] - Forms: ED Department Discharge Additional Instructions: 1. Lasix 20 mg daily for the next 5 days 2. Follow up with Reddy in the next 4-5 days 3. May need stress test and echocardiogram 4. Call with any questions or concerns. Sepsis Event Note (ED) - Evaluation Sepsis Screening Result: No Definite Risk - Focused Exam Vital Signs: Vital Signs Temp Pulse Resp BP Pulse Ox 05/04/21 17:14 97.6 F 97 15 126/85 97
--- NOTE | 2021-05-04 17:59 | CR ---
[id number] RAD/RAD Chest PA And Lateral EXAM: RAD Chest PA And Lateral INDICATION: SHORTNESS OF BREATH. COMPARISON: November 27, 2020. DISCUSSION/IMPRESSION: Cardiomediastinal silhouette is normal in size and contour. Lungs are clear. No pleural effusion or pneumothorax. Joesph Green MD 05/04/21 [id number] Thank you for allowing us to participate in the care of your patient.
[2021-05-04 18:10] LABS: CHLORIDE,CL 105 mmol/L (98-107); SODIUM,NA 142 mmol/L (136-145)
== END 2021-05-04 18:41 | disposition home or self-care (01) ==
LOC: VM.ED 16:51
DX: I11.0 Hypertensive heart disease with heart failure (principal); I50.9 Heart failure, unspecified; R00.1 Bradycardia, unspecified; E78.00 Pure hypercholesterolemia, unspecified; E11.9 Type 2 diabetes mellitus without complications; Z79.82 Long term (current) use of aspirin; Z79.899 Other long term (current) drug therapy; Z88.4 Allergy status to anesthetic agent; Z91.018 Allergy to other foods; Z20.822 Contact with and (suspected) exposure to COVID-19; Z87.891 Personal history of nicotine dependence; Z79.84 Long term (current) use of oral hypoglycemic drugs
CPT/HCPCS: 36415; 71046; 80053; 82550; 83615; 83880; 84484; 85025; 85379; 86140; 99284; 99285-25; U0002

== ENCOUNTER 2021-08-06 08:42 | Emergency (ER) | payer BC ==
[2021-08-06] MEDS ORDERED: Albuterol/Ipratropium 3.0-0.5 MG/3 ML Neb Soln NEB ONE (08:59)
--- NOTE | 2021-08-06 09:08 | EDM.PDOC ---
ED HPI GENERAL MEDICAL PROBLEM - General Chief Complaint: Respiratory Problem Stated Complaint: SOB Time Seen by Provider: 08/06/21 09:00 Source of Information: Reports: Patient History Limitations: Reports: No Limitations, Other (short answers due to SOB) - History of Present Illness INITIAL COMMENTS - FREE TEXT/NARRATIVE: Was shoveling snow and became SOB. No CP. States he has seen provider for this and no definitive dx was given to him. States he had heart cath fairly recently that it was negative. Quit smoking in Sep. States has hx of slow heart rate and that also has not had a dx given to him. Onset: Today Onset Date: 08/06/21 Onset Time: 06:30 Duration: Getting Worse Location: Reports: Other (no pain reported) Improves with: Reports: Rest Worsens with: Reports: Movement Context: Reports: Exercise Associated Symptoms: Reports: No Other Symptoms - Related Data Allergies Allergy/AdvReac Type Severity Reaction Status Date / Time strawberry Allergy Cannot Verified 08/06/21 08:57 Remember succinylcholine Allergy Cardiac Verified 08/06/21 10:50 Arrest Home Meds: Home Meds atorvaSTATin Calcium [Atorvastatin Calcium] 10 mg PO DAILY 05/10/19 [History] lisinopriL [Lisinopril] 5 mg PO DAILY 05/10/19 [History] metFORMIN HCl [Metformin HCl] 500 mg PO DAILY 05/10/19 [History] Aspirin 81 mg PO DAILY 11/27/20 [History] Multivitamin 1 tab PO DAILY 11/27/20 [History] Albuterol [Ventolin HFA] 2 puff IH Q4H PRN 08/06/21 [History] Budesonide/Formoterol Fumarate [Symbicort 80-4.5 MCG] 2 puff IH BID 08/06/21 [History] Past Medical History - Past Health History Medical/Surgical History: Denies Medical/Surgical History Cardiovascular History: Reports: High Cholesterol, Hypertension Endocrine/Metabolic History: Reports: Diabetes, Type II - Infectious Disease History Infectious Disease History: Reports: None - Past Surgical History Respiratory Surgical History: Reports: Other (See Below) Other Respiratory Surgeries/Procedures: Bronchial cyst removal Musculoskeletal Surgical History: Reports: Carpal Tunnel Other Musculoskeletal Surgeries/Procedures:: Trigger finger Social & Family History - Tobacco Use Tobacco Use Status *Q: Former Tobacco User Used Tobacco, but Quit: Yes Month/Year Tobacco Last Used: 10/01 - Recreational Drug Use Recreational Drug Use: No ED ROS GENERAL - Review of Systems Review Of Systems: See Below Constitutional: Reports: No Symptoms HEENT: Reports: No Symptoms Respiratory: Reports: Shortness of Breath Cardiovascular: Reports: Other (bradycardia) Endocrine: Reports: No Symptoms GI/Abdominal: Reports: No Symptoms : Reports: No Symptoms Musculoskeletal: Reports: No Symptoms Skin: Reports: No Symptoms Neurological: Reports: No Symptoms Psychiatric: Reports: No Symptoms Hematologic/Lymphatic: Reports: No Symptoms Immunologic: Reports: No Symptoms ED EXAM, GENERAL - Physical Exam Exam: See Below Exam Limited By: Other (short of breath when answering, but improved) Eye Exam: Bilateral Eye: EOMI Ears: Normal External Exam Nose: Normal Inspection, Normal Mucosa, No Blood Throat/Mouth: Normal Inspection, Normal Oropharynx, Normal Voice, No Airway Compromise Head: Atraumatic, Normocephalic Neck: Normal Inspection, Supple, Non-Tender, Full Range of Motion, Tender Midline Respiratory/Chest: Lungs Clear, Other (increased work of breathing) GI/Abdominal: Soft, Non-Tender, No Distention Back Exam: Normal Inspection, Full Range of Motion Extremities: Normal Range of Motion, Non-Tender, Normal Capillary Refill Neurological: Alert, Oriented, Normal Cognition Psychiatric: Normal Affect, Normal Mood, Other (mildly anxious initially) Skin Exam: Warm, Dry, Intact, No Rash Lymphatic: No Adenopathy #1 Interpretation Rate (Beats/Min): 60 (Sr with vent trigeminy) Comparison: No Change EKG Interpretation Comments: LVH Course - Vital Signs Last Recorded V/S: Last Vital Signs Temp 96.6 F L 08/06/21 08:45 Pulse 66 08/06/21 10:00 Resp 17 08/06/21 10:00 BP 133/90 08/06/21 08:45 Pulse Ox 98 08/06/21 10:00 - Orders/Labs/Meds Orders: Active Orders 24 hr Category Date Time Status RT Aerosol Therapy [RC] ASDIRECTED Care 08/06/21 08:59 Active Chest 2V [CR] Stat Exams 08/06/21 10:11 Ordered Labs: Laboratory Tests 08/06/21 08/06/21 Range/Units 09:27 09:27 WBC 6.7 (4.0-10.0) x10^3/uL RBC 4.80 (4.5-6.0) x10^6/uL Hgb 13.6 L (14.0-18.0) g/dL Hct 41.2 (40.0-52.0) % MCV 85.8 (78.0-93.0) fL MCH 28.3 (26.0-32.0) pg MCHC 33.0 (32.0-36.0) g/dL RDW Coeff of Jorge 13.0 (10.0-15.0) % Plt Count 193 (130-400) x10^3/uL Immature Gran % (Auto) 0.10 (0.00-0.43) % Neut % (Auto) 69.6 (50.0-80.0) % Lymph % (Auto) 19.6 L (25.0-50.0) % [place] % (Auto) 9.4 (2.0-11.0) % Eos % (Auto) 1.0 (0.0-4.0) % Baso % (Auto) 0.3 (0.2-1.2) % Neut # (Auto) 4.7 (1.8-7.7) x10^3/uL Lymph # (Auto) 1.3 (1.0-4.8) x10^3/uL [place] # (Auto) 0.6 (0.0-0.8) x10^3/uL Eos # (Auto) 0.1 (0.0-0.5) x10^3/uL Baso # (Auto) 0.0 (0.0-0.2) x10^3/uL Immature Gran # (Auto) 0.01 (0.00-0.07) x10^3/uL Sodium 140 (136-145) mmol/L Potassium 3.7 (3.5-5.1) mmol/L Chloride 106 (98-107) mmol/L Carbon Dioxide 24 (21-32) mmol/L Anion Gap 13.7 (5-15) mmol/L BUN 17 (7-18) mg/dL Creatinine 0.6 L (0.70-1.30) mg/dL Est Cr Clr Drug Dosing TNP Estimated GFR (MDRD) > 60 Glucose 108 H (70-99) mg/dL Calcium 9.2 (8.5-10.1) mg/dL Corrected Calcium 9.4 (8.5-10.1) mg/dL Total Bilirubin 0.6 (0.2-1.0) mg/dL AST 31 (15-37) U/L ALT 32 (16-63) U/L Alkaline Phosphatase 57 (46-116) U/L Troponin I High Sens 69 (<=76) ng/L Total Protein 7.4 (6.4-8.2) g/dL Albumin 3.8 (3.4-5.0) g/dL Globulin 3.6 Albumin/Globulin Ratio 1.06 Meds: Medications Discontinued Medications Generic Name Dose Route Start Last Admin Trade Name Freq PRN Reason Stop Dose Admin Albuterol/Ipratropium 3 ml 08/06/21 08:59 08/06/21 09:01 Albuterol/Ipratropium 3.0-0.5 Mg/3 Ml Neb Soln NEB 08/06/21 09:00 3 ml ONETIME ONE Administration - Re-Assessments/Exams Free Text/Narrative Re-Assessment/Exam: 08/06/21 10:54 Pt initially SOB and gave one word answers. Denied CP. Ordered duo neb. EKG done when pulse was noted to be lower than expected for person SOB. Noted to have trigeminy, this improved but his pulse rate remained low 60s for most of stay. He was on bedside monitor during stay. CXR shows no acute abnormality. Pt gradually became less and less SOB and PVCs became less frequent. He stated that he has seen cardiology, denies ever having stress test. Stated that he will rest today and follow up with his Primary Care as soon as possible. Left ambulatory, no SOB or CP, speaking in full sentences, no distress. Departure - Departure Time of Disposition: 10:50 Disposition: Home, Self-Care 01 Condition: Good Clinical Impression: PVCs (premature ventricular contractions), Shortness of breath on exertion - Discharge Information Instructions: Premature Ventricular Contraction, Shortness of Breath, Adult, [id number] Forms: ED Department Discharge Additional Instructions: Avoid excessive physical exercise or labor. Stop if you become short of breath. Follow up with your Primary Care Provider. Call today and arrange an appointment. Sepsis Event Note (ED) - Focused Exam Vital Signs: Vital Signs Temp Pulse Resp BP Pulse Ox 08/06/21 10:00 66 17 98 08/06/21 08:45 96.6 F L 70 24 H 133/90 99 - Problem List & Annotations (1) PVCs (premature ventricular contractions) SNOMED Code(s): 20719820 Code(s): I49.3 - VENTRICULAR PREMATURE DEPOLARIZATION Status: Acute Current Visit: Yes (2) Shortness of breath on exertion SNOMED Code(s): 96101615 Code(s): R06.02 - SHORTNESS OF BREATH Status: Acute Current Visit: Yes - Problem List Review Problem List Initiated/Reviewed/Updated: Yes - My Orders Last 24 Hours: My Active Orders 08/06/21 08:59 RT Aerosol Therapy [RC] ASDIRECTED 08/06/21 10:11 Chest 2V [CR] Stat - Assessment/Plan Last 24 Hours: My Active Orders 08/06/21 08:59 RT Aerosol Therapy [RC] ASDIRECTED 08/06/21 10:11 Chest 2V [CR] Stat
[2021-08-06 09:56] LABS: CHLORIDE,CL 106 mmol/L (98-107); SODIUM,NA 140 mmol/L (136-145)
[2021-08-06 09:57] LABS: ANION GAP 13.7 mmol/L (5-15)
--- NOTE | 2021-08-06 10:39 | CR ---
[id number] RAD/RAD Chest PA And Lateral EXAM: RAD Chest PA And Lateral INDICATION: SHORT OF BREATH. COMPARISON: May 04, 2021. DISCUSSION: Cardiomediastinal silhouette is stable in size and contour. No infiltrate, effusion, pneumothorax, or edema. IMPRESSION: No acute cardiopulmonary abnormality. Mario Goetz DO 08/06/21 1038 Thank you for allowing us to participate in the care of your patient.
[2021-08-06 10:48] VITALS: BP 125/85; PULSE 61
== END 2021-08-06 10:54 | disposition home or self-care (01) ==
LOC: VM.ED 08:42
DX: I49.3 Ventricular premature depolarization (principal); E78.00 Pure hypercholesterolemia, unspecified; I10 Essential (primary) hypertension; E11.9 Type 2 diabetes mellitus without complications; I51.7 Cardiomegaly; Z87.891 Personal history of nicotine dependence; Z91.018 Allergy to other foods; Z88.8 Allergy status to other drugs, medicaments and biological substances; Z79.82 Long term (current) use of aspirin; Z79.84 Long term (current) use of oral hypoglycemic drugs; Z79.899 Other long term (current) drug therapy
CPT/HCPCS: 36415; 71046; 80053; 84484; 85025; 93005; 94640; 99285-25; J7620-GY

== ENCOUNTER 2022-01-09 19:13 | Emergency (ER) | payer BC ==
[2022-01-09] MEDS ORDERED: Lidocaine 1% 5 ML VIAL INJECT ONE (19:32)
[2022-01-09 23:34] VITALS: BP 147/91; PULSE 63
== END 2022-01-09 20:20 | disposition home or self-care (01) ==
LOC: VM.ED 19:13
DX: S01.112A Laceration without foreign body of left eyelid and periocular area, initial encounter (principal); E78.00 Pure hypercholesterolemia, unspecified; I10 Essential (primary) hypertension; E11.9 Type 2 diabetes mellitus without complications; Z79.899 Other long term (current) drug therapy; Z79.84 Long term (current) use of oral hypoglycemic drugs; Z79.82 Long term (current) use of aspirin; Z91.018 Allergy to other foods; Z88.4 Allergy status to anesthetic agent; W18.39XA Other fall on same level, initial encounter
CPT/HCPCS: 12013; 99282-25; 99283

== ENCOUNTER 2022-09-28 20:03 | Emergency (ER) | payer BC ==
[2022-09-28 20:39] VITALS: BP 144/83; PULSE 60
[2022-09-28 21:29] LABS: CORONAVIRUS COVID-19 NAA NEGATIVE (NEGATIVE); RESPIRATORY SYNCYTIAL VIR NAA NEGATIVE (NEGATIVE)
== END 2022-09-28 21:50 | disposition home or self-care (01) ==
LOC: VM.ED 20:03
DX: B34.9 Viral infection, unspecified (principal); E78.00 Pure hypercholesterolemia, unspecified; I10 Essential (primary) hypertension; E11.9 Type 2 diabetes mellitus without complications; Z91.018 Allergy to other foods; Z88.4 Allergy status to anesthetic agent; Z79.82 Long term (current) use of aspirin; Z79.84 Long term (current) use of oral hypoglycemic drugs; Z79.899 Other long term (current) drug therapy; Z20.822 Contact with and (suspected) exposure to COVID-19
CPT/HCPCS: 0241U; 71046; 99283; 99284

== ENCOUNTER 2023-04-15 16:37 | Emergency (ER) | payer BC ==
[2023-04-15 16:54] VITALS: BP 121/75; PULSE 60
== END 2023-04-15 17:09 | disposition home or self-care (01) ==
LOC: VM.ED 16:37
DX: R10.31 Right lower quadrant pain (principal); E78.00 Pure hypercholesterolemia, unspecified; I10 Essential (primary) hypertension; E11.9 Type 2 diabetes mellitus without complications; Z91.018 Allergy to other foods; Z88.8 Allergy status to other drugs, medicaments and biological substances; Z79.82 Long term (current) use of aspirin; Z79.84 Long term (current) use of oral hypoglycemic drugs; Z79.899 Other long term (current) drug therapy
CPT/HCPCS: 99283

== ENCOUNTER 2023-07-26 19:30 | Emergency (ER) | payer BC ==
[2023-07-26] MEDS ORDERED: Sodium Chloride 0.9% 10 ML Syringe FLUSH PRN (19:37)
[2023-07-26] MEDS: HYDROmorphone 1 MG/ML Syringe IVPUSH ONE (19:45)
[2023-07-26 19:48] LABS: BASOPHILS PERCENT AUTO 0.5 % (0.2-1.2); EOSINOPHILS ABSOLUTE AUTO 0.2 x10^3/uL (0.0-0.5); EOSINOPHILS PERCENT AUTO 3.1 % (0.0-4.0); HEMATOCRIT 39.2 % (40.0-52.0); HEMOGLOBIN 12.9 g/dL (14.0-18.0); LYMPHOCYTES ABSOLUTE AUTO 1.9 x10^3/uL (1.0-4.8); MEAN CORPUSCULAR HEMOGLOBIN 29.1 pg (26.0-32.0); MEAN CORPUSCULAR HGB CONC 32.9 g/dL (32.0-36.0); MEAN CORPUSCULAR VOLUME 88.5 fL (78.0-93.0); MONOCYTES ABSOLUTE AUTO 0.5 x10^3/uL (0.0-0.8); NEUTROPHILS ABSOLUTE AUTO 4.9 x10^3/uL (1.8-7.7); NEUTROPHILS PERCENT AUTO 64.4 % (50.0-80.0); PLATELET COUNT,PLT 196 x10^3/uL (130-400); RED BLOOD CELL COUNT 4.43 x10^6/uL (4.5-6.0); WHITE BLOOD CELL COUNT,WBC 7.5 x10^3/uL (4.0-10.0)
[2023-07-26 19:51] VITALS: PULSE 61
[2023-07-26 20:07] LABS: LACTIC ACID 1.3 mmol/L (0.4-2.0)
[2023-07-26 20:14] LABS: A/G RATIO 1.11; ALANINE AMINOTRANSFERASE,ALT 22 U/L (16-63); ALKALINE PHOSPHATASE 44 U/L (46-116); ASPARTATE AMNIOTRANSFERASE,AST 18 U/L (15-37); BILIRUBIN TOTAL 0.3 mg/dL (0.2-1.0); BLOOD UREA NITROGEN,BUN 17 mg/dL (7-18); CALCIUM 7.3 mg/dL (8.5-10.1); CARBON DIOXIDE,CO2 25 mmol/L (21-32); CHLORIDE,CL 111 mmol/L (98-107); CREATININE 0.7 mg/dL (0.70-1.30); GLUCOSE RANDOM 63 mg/dL (70-99); MAGNESIUM 1.5 mg/dL (1.8-2.4); POTASSIUM,K 3.3 mmol/L (3.5-5.1); PROTEIN TOTAL,TP 5.7 g/dL (6.4-8.2); PROTHROMBIN TIME 10.5 SEC (9.5-12.2); SODIUM,NA 146 mmol/L (136-145); TSH ULTRASENSITIVE 1.334 uIU/mL (0.358-3.74)
[2023-07-26 20:15] LABS: ANION GAP 13.3 mmol/L (5-15); C-REACTIVE PROTEIN < 0.50 mg/dL (<=0.50); ESTIMATED GFR 106 mL/min (>=60)
[2023-07-26] MEDS: Ondansetron 4 MG/2 ML SDV IVPUSH ONE (20:19)
[2023-07-26 20:22] VITALS: BP 121/74
[2023-07-26 20:41] LABS: D-DIMER QUANTITATIVE 0.91 mg/LFEU (<=0.58); PTT,PARTIAL THROMBOPLSTIN TIME 27.3 SEC (23.6-33.6)
[2023-07-26] MEDS: Take Home: predniSONE 20 MG, 2 Tab Pack PO ONE (21:01)
[2023-07-26] MEDS: Metoclopramide 10 MG/2 ML SDV IVPUSH ONE (21:01)
== END 2023-07-26 21:10 | disposition home or self-care (01) ==
LOC: VM.ED 19:30
DX: R07.89 Other chest pain (principal); I10 Essential (primary) hypertension; E78.00 Pure hypercholesterolemia, unspecified; E11.9 Type 2 diabetes mellitus without complications; Z79.82 Long term (current) use of aspirin; Z79.899 Other long term (current) drug therapy; Z91.018 Allergy to other foods; Z88.4 Allergy status to anesthetic agent
CPT/HCPCS: 71045; 80053; 83605; 83735; 84443; 84484; 85025; 85379; 85610; 85730; 86140; 93005; 96374; 96375; 99285; J1170; J2405; J2765; J7512

== ENCOUNTER 2023-12-26 14:20 | Emergency (ER) | payer OTHER, BC ==
[2023-12-26 15:27] VITALS: BP 120/73; PULSE 61
== END 2023-12-26 16:00 | disposition home or self-care (01) ==
LOC: VM.ED 14:20
DX: S01.01XA Laceration without foreign body of scalp, initial encounter (principal); E78.00 Pure hypercholesterolemia, unspecified; I10 Essential (primary) hypertension; E11.9 Type 2 diabetes mellitus without complications; Z91.018 Allergy to other foods; Z88.8 Allergy status to other drugs, medicaments and biological substances; Z79.899 Other long term (current) drug therapy; Z79.84 Long term (current) use of oral hypoglycemic drugs; Z79.82 Long term (current) use of aspirin; W22.8XXA Striking against or struck by other objects, initial encounter
CPT/HCPCS: 12001; 70450; 99283